=== PATIENT | male | born 1985 | race African-American/Black ===

== ENCOUNTER 2016-10-15 16:41 | Emergency (ER) | payer OTHER ==
--- NOTE | 2016-10-15 16:52 | PDOC ---
History of Present Illness - History of Present Illness Initial Comments: 10/15/16 17:05 The patient is a 31 year old male with a past medical hx of HIV who presents to the ED via EMS complaining of nausea and vomiting for one day. The patient reports he has been having diarrhea since yesterday and woke up this morning feeling nauseous. He reports 4-5 episodes of vomiting today. The patient reports associated fever and chills. He denies any abdominal pain. He reports similar symptoms one year ago and states he just waited it out and did not go to the hospital. He denies any sick contacts. He denies chest pain, SOB, headaches, dysuria, lightheadedness Allergies: NKDA Social: Smokes cigarettes <Nithya Aguila - Last Filed: 10/15/16 19:15> - General History Source: Patient Exam Limitations: No Limitations <Lizbeth Zazueta - Last Filed: 10/18/16 11:35> - General Chief Complaint: Nausea/Vomiting Stated Complaint: VOMITING,NAUSEA Time Seen by Provider: 10/15/16 16:51 Past History <Nithya Aguila - Last Filed: 10/15/16 19:15> <Lizbeth Zazueta - Last Filed: 10/18/16 11:35> - Past Medical History Allergies/Adverse Reactions: Allergies Allergy/AdvReac Type Severity Reaction Status Date / Time No Known Allergies Allergy Verified 10/15/16 16:49 Home Medications: Ambulatory Orders Abacavir/Dolutegravir/Lamivudi [Triumeq Tablet] 1 each PO DAILY 10/15/16 Ondansetron HCl [Zofran] 4 mg PO BID PRN #14 tablet 10/15/16 Review of Systems - Review of Systems Able to Perform ROS?: Yes Comments:: 10/15/16 17:06 GENERAL/CONSTITUTIONAL: +Fever, chills. No: weakness HEAD, EYES, EARS, NOSE AND THROAT: No: change in vision, ear pain, discharge, sore throat, throat swelling. CARDIOVASCULAR: No: chest pain, lightheadedness, palpitations, syncope RESPIRATORY: No: cough, shortness of breath, wheezing, hemoptysis, stridor. GASTROINTESTINAL: +Nausea, vomiting, diarrhea. No: abdominal cramping, rectal bleeding, constipation. GENITOURINARY: No: dysuria, hematuria, frequency, urgency, flank pain. MUSCULOSKELETAL: No: back pain, neck pain, joint pain, muscle swelling or pain SKIN: No: lesions, pallor, rash or easy bruising. NEUROLOGIC: No: headache, vertigo, paresthesias, weakness ENDOCRINE: No: unexplained weight gain or loss HEMATOLOGIC/LYMPHATIC: No: anemia, easy bleeding, swelling nodes <AylaNithya - Last Filed: 10/15/16 19:15> *Physical Exam - Vital Signs Last Vital Signs Temp Pulse Resp BP Pulse Ox 97.4 F L 64 20 126/78 97 10/15/16 16:50 10/15/16 16:50 10/15/16 16:50 10/15/16 16:50 10/15/16 16:50 - Physical Exam Comments: 10/15/16 17:26 GENERAL: The patient is in no acute distress. HEAD: Normal with no signs of trauma. EYES: PERRLA, EOMI, sclera anicteric, conjunctiva clear. ENT: Ears normal, nares patent, oropharynx clear without exudates. Moist mucous membranes. NECK: Normal range of motion, supple without lymphadenopathy, JVD, or masses. LUNGS: Breath sounds equal, clear to auscultation bilaterally. No wheezes, and no crackles. HEART:Regular rate and rhythm, normal S1 and S2 without murmur, rub or gallop. ABDOMEN: +Mild suprapubic tenderness. Soft, normoactive bowel sounds. No guarding, no rebound. EXTREMITIES: Normal range of motion, no edema. No clubbing or cyanosis. No erythema, or tenderness. NEUROLOGICAL: Cranial nerves II through XII grossly intact. Normal speech. No focal neurological deficits. MUSCULOSKELETAL: Back nontender to palpation, no CVA tenderness SKIN: Warm, Dry, normal turgor, no rashes or lesions noted. <AylaNithya - Last Filed: 10/15/16 19:15> ED Treatment Course - LABORATORY CBC & Chemistry Diagram: 10/15/16 17:30 10/15/16 18:00 <AylaNithya - Last Filed: 10/15/16 19:15> - LABORATORY CBC & Chemistry Diagram: 10/15/16 17:30 10/15/16 18:00 <Lizbeth Zazueta - Last Filed: 10/18/16 11:35> Medical Decision Making - Medical Decision Making 31 yo M h/o HIV on Triumeq (unknown CD4, VL undetectable, followed in [place]) she presents to the ER with a complaint of diarrhea, nausea, vomiting symptoms began with diarrhea yesterday (soft stools) Today he noted nausea and vomiting No recent travel No ill contacts No abdominal pain Pt states this has happened to him in the past on examination: Mild suprapubic tenderness Pt predominant complaint is nausea He ate while in the ER States it made him nauseous 10/15/16 17:58 Laboratory Tests 10/15/16 17:30 WBC 4.2 Hgb 15.4 Hct 46.3 Plt Count 183 Neutrophils % 66.9 Lymphocytes % 19.7 CMP hemolyzed 10/15/16 18:44 10/15/16 18:47 10/15/16 19:04 Laboratory Tests 10/15/16 10/15/16 18:00 18:00 Sodium 139 Potassium 4.3 Chloride 104 Carbon Dioxide 29 BUN 5 L Creatinine 0.8 Random Glucose 105 Total Bilirubin 0.4 AST 49 H ALT 52 Total Amylase 131 H Lipase 186 10/15/16 22:54 Laboratory Tests 10/15/16 22:21 Urine Blood Negative Urine Nitrite Negative Ur Leukocyte Esterase Negative Pt improved discharge to home Repeat exam, no tenderness to palpation Will discharge to home Pt asked to return to the ER for worsening or persistent symptoms Pt asked to return to the ER for any new symptoms 10/15/16 23:37 clinical impression: nausea and vomiting <Lizbeth Zazueta - Last Filed: 10/18/16 11:35> *DC/Admit/Observation/Transfer - Attestations Scribe Attestion: 10/15/16 17:05 Documentation prepared by Nithya Aguila, acting as medical physiologist for Lizbeth Zazueta MD/DO. <Nithya Aguila - Last Filed: 10/15/16 19:15> - Discharge Dispostion Admit: No <Lizbeth Zazueta - Last Filed: 10/18/16 11:35> Diagnosis at time of Disposition: Nausea & vomiting Qualifiers: Vomiting type: unspecified Vomiting Intractability: non-intractable Qualified Code(s): R11.2 - Nausea with vomiting, unspecified - Discharge Dispostion Disposition: HOME Condition at time of disposition: Stable - Prescriptions Prescriptions: Ondansetron HCl [Zofran] 4 mg PO BID PRN #14 tablet PRN Reason: Nausea - Patient Instructions Printed Discharge Instructions: DI for Vomiting -- Adult, DI for Nausea -- Adult Additional Instructions: Mike Thank you for coming in to the Er today Please take anti nausea medications as prescribed Please modify your diet so that you are not eating spicy, salty, oily, heavy foods Please stay hydrated Please monitor for pain in your right lower abdomen, left lower abdomen or right upper abdomen You can return to the ER at any time for any new symptoms, any new concerns or complaints
[2016-10-15] MEDS ORDERED: SODIUM CHLORIDE 1,000 ML IV STA ×2 (16:54→17:06)
[2016-10-15] MEDS ORDERED: ONDANSETRON 4 MG/2 ML VIAL IVPUSH ONE (16:54)
[2016-10-15 16:59] VITALS: BP 126/78; PULSE 64; TEMP 97.4; BMI 21.8
[2016-10-15] MEDS ORDERED: ONDANSETRON 4 MG/2 ML VIAL ONE (17:02)
[2016-10-15 17:39] LABS: BASOPHIL 0.3 % (0-2.0); EOSINOPHIL 0.9 % (0-4.5); MCH 30.6 pg (25.7-33.7); MCHC 33.3 g/dl (32.0-35.9); MEAN CELL VOLUME 92.1 fl (80-96); NEUTROPHILS 66.9 % (42.8-82.8); PLATELET COUNT 183 K/MM3 (134-434); RDW 14.9 % (11.9-15.9); WHITE BLOOD COUNT 4.2 K/mm3 (4.0-10.0)
[2016-10-15] MEDS ORDERED: METOCLOPRAMIDE HCL INJECTION 10 MG/2 ML VIAL IVPB ONE (18:37)
[2016-10-15] MEDS ORDERED: METOCLOPRAMIDE HCL INJECTION 10 MG/2 ML VIAL ONE (18:47)
[2016-10-15 18:57] LABS: AMYLASE 131 U/L (25-115)
[2016-10-15 19:01] LABS: ALBUMIN 3.4 g/dl (3.4-5.0); ALK PHOS 92 U/L (45-117); ANION GAP 6 (8-16); BILIRUBIN,TOTAL 0.4 mg/dL (0.2-1.0); CALCIUM 8.6 mg/dL (8.5-10.1); CO2 29 mmol/L (21-32); COCKROFT - GAULT 129.36; CREATININE 0.8 mg/dL (0.7-1.3); GLUCOSE,RANDOM 105 mg/dL (74-106); SGOT/AST 49 U/L (15-37); SGPT/ALT 52 U/L (12-78); TOT PROT 7.9 g/dl (6.4-8.2)
[2016-10-15 22:32] LABS: URINE APPEARANCE CLEAR; URINE BILIRUBIN NEGATIVE (NEGATIVE); URINE BLOOD NEGATIVE (NEGATIVE); URINE COLOR YELLOW; URINE GLUCOSE (UA) NEGATIVE (NEGATIVE); URINE KETONE NEGATIVE (NEGATIVE); URINE LEUK ESTERASE NEGATIVE (NEGATIVE); URINE NITRITE NEGATIVE (NEGATIVE); URINE PROTEIN NEGATIVE (NEGATIVE); URINE UROBILINOGEN NEGATIVE E.U./dl (0.2-1.0)
== END 2016-10-16 00:34 | disposition home or self-care (01) ==
LOC: JER 16:41
PROC: 3E0337Z Introduction of Electrolytic and Water Balance Substance into Peripheral Vein, Percutaneous Approach (ICD-10-PCS; principal; 2016-10-15)
PROC: 3E033GC Introduction of Other Therapeutic Substance into Peripheral Vein, Percutaneous Approach (ICD-10-PCS; 2016-10-15)
DX: R11.12 Projectile vomiting (principal); Z21 Asymptomatic human immunodeficiency virus [HIV] infection status
CPT/HCPCS: 36415; 80053; 81003; 82150; 83690; 85025; 87086; 96361; 96374; 96375; 99283-25